=== PATIENT | female | born 1985 | race Caucasian/White ===

== ENCOUNTER 2017-02-25 16:38 | Emergency (ER) | payer MEDICAID | END 2017-02-25 20:40 | disposition home or self-care (01) | LOC: D.ER 16:38 | DX: E86.0 Dehydration (principal); F17.200 Nicotine dependence, unspecified, uncomplicated ==

== ENCOUNTER 2017-05-26 20:19 | Emergency (ER) | payer MEDICAID ==
[2017-05-26 21:07] LABS: APPEARANCE CLEAR (CLEAR); BILIRUBIN NEGATIVE (NEGATIVE); COLOR YELLOW (YELLOW); GLUCOSE NEGATIVE (NEGATIVE); KETONE NEGATIVE (NEGATIVE); NITRITE NEGATIVE (NEGATIVE); PROTEIN NEGATIVE (NEGATIVE); UROBILINOGEN NORMAL (NORMAL)
[2017-05-26 21:22] LABS: BASOPHILS 0.1 % (0-2); EOSINOPHILS 0.8 % (0-7); HEMOGLOBIN 10.8 g/dL (12-16); IMMATURE GRANULOCYTES 0.3 % (0-5); LYMPHOCYTES 29.8 % (15-50); MCH 30.8 pg (26.0-34.0); MCHC 34.8 g/dL (31.0-37.0); MCV 88.3 fL (80.0-100.0); MEAN PLATELET VOLUME 9.2 fL (7.4-10.4); MONOCYTES 4.6 % (2-11); NEUTROPHILS 64.4 % (40-80); PLATELET COUNT 287 10x3/uL (130-400); RBC 3.51 10x6/uL (4.00-5.40); RDW 13.7 % (11.5-14.5); WBC 11.6 10x3/uL (4.8-10.8)
[2017-05-26 21:26] LABS: HCG SERUM POSITIVE (NEGATIVE)
[2017-05-26 21:33] LABS: ALBUMIN 3.2 g/dL (3.4-5.0); ALKALINE PHOSPHATASE 54 U/L (46-116); ALT (SGPT) 13 U/L (10-68); CALC OSMOLALITY 270 mosm/kg (275-300); CALCIUM 9.4 mg/dL (8.5-10.1); CARBON DIOXIDE 23.7 mmol/L (21.0-32.0); CHLORIDE - SERUM 102 mmol/L (98-107); CREATININE - SERUM 0.6 mg/dL (0.6-1.3); GLUCOSE 109 mg/dL (74-106); POTASSIUM - SERUM 3.4 mmol/L (3.5-5.1); PROTEIN - SERUM 7.1 g/dL (6.4-8.2); SODIUM 136 mmol/L (136-145); UREA NITROGEN 7 mg/dL (7-18); eGFR NON AFRICAN AMERICAN > 90 mL/min (90-120)
== END 2017-05-26 22:32 | disposition home or self-care (01) ==
LOC: D.ER 20:19
PROVIDERS: Family Medicine
DX: O26.892 Other specified pregnancy related conditions, second trimester (principal); Z3A.21 21 weeks gestation of pregnancy; V43.52XA Car driver injured in collision with other type car in traffic accident, initial encounter; Y93.89 Activity, other specified; Y92.410 Unspecified street and highway as the place of occurrence of the external cause; F17.200 Nicotine dependence, unspecified, uncomplicated

== ENCOUNTER 2017-06-01 19:28 | Outpatient (CLI) | payer MEDICAID ==
[2017-06-01 20:25] LABS: BASOPHILS 0.1 % (0-2); EOSINOPHILS 0.9 % (0-7); HEMATOCRIT 29.7 % (36.0-48.0); HEMOGLOBIN 10.5 g/dL (12-16); IMMATURE GRANULOCYTES 0.3 % (0-5); LYMPHOCYTES 27.8 % (15-50); MCH 31.3 pg (26.0-34.0); MCHC 35.4 g/dL (31.0-37.0); MCV 88.7 fL (80.0-100.0); MEAN PLATELET VOLUME 9.1 fL (7.4-10.4); MONOCYTES 5.2 % (2-11); NEUTROPHILS 65.7 % (40-80); PLATELET COUNT 301 10x3/uL (130-400); RBC 3.35 10x6/uL (4.00-5.40); WBC 9.7 10x3/uL (4.8-10.8)
[2017-06-01 20:33] LABS: CALC OSMOLALITY 275 mosm/kg (275-300); CALCIUM 8.3 mg/dL (8.5-10.1); CARBON DIOXIDE 22.6 mmol/L (21.0-32.0); CHLORIDE - SERUM 104 mmol/L (98-107); CREATININE - SERUM 0.6 mg/dL (0.6-1.3); GLUCOSE 106 mg/dL (74-106); POTASSIUM - SERUM 3.5 mmol/L (3.5-5.1); SODIUM 139 mmol/L (136-145); UREA NITROGEN 6 mg/dL (7-18); eGFR NON AFRICAN AMERICAN > 90 mL/min (90-120)
[2017-06-01 20:44] LABS: APPEARANCE CLEAR (CLEAR); BILIRUBIN NEGATIVE (NEGATIVE); COLOR YELLOW (YELLOW); GLUCOSE NEGATIVE (NEGATIVE); KETONE NEGATIVE (NEGATIVE); NITRITE NEGATIVE (NEGATIVE); PROTEIN NEGATIVE (NEGATIVE); SPECIFIC GRAVITY 1.015 (1.005-1.020); UROBILINOGEN NORMAL (NORMAL)
== END 2017-06-01 21:43 | disposition home or self-care (01) ==
LOC: D.LDO 19:28
PROVIDERS: Obstetrics & Gynecology
DX: O26.892 Other specified pregnancy related conditions, second trimester (principal); Z3A.21 21 weeks gestation of pregnancy; R42 Dizziness and giddiness

== ENCOUNTER 2017-06-07 15:25 | Emergency (ER) | payer MEDICAID ==
[2017-06-07 16:10] LABS: APPEARANCE CLEAR (CLEAR); BILIRUBIN NEGATIVE (NEGATIVE); COLOR YELLOW (YELLOW); GLUCOSE NEGATIVE (NEGATIVE); KETONE NEGATIVE (NEGATIVE); NITRITE NEGATIVE (NEGATIVE); PROTEIN NEGATIVE (NEGATIVE); SPECIFIC GRAVITY 1.015 (1.005-1.020); UROBILINOGEN NORMAL (NORMAL)
[2017-06-07 16:43] LABS: BASOPHILS 0.1 % (0-2); EOSINOPHILS 0.9 % (0-7); HEMOGLOBIN 10.8 g/dL (12-16); IMMATURE GRANULOCYTES 0.4 % (0-5); LYMPHOCYTES 22.7 % (15-50); MCH 30.9 pg (26.0-34.0); MCHC 34.8 g/dL (31.0-37.0); MCV 88.6 fL (80.0-100.0); MEAN PLATELET VOLUME 9.2 fL (7.4-10.4); MONOCYTES 7.1 % (2-11); NEUTROPHILS 68.8 % (40-80); PLATELET COUNT 308 10x3/uL (130-400); RDW 14.2 % (11.5-14.5); WBC 12.4 10x3/uL (4.8-10.8)
[2017-06-07 17:14] LABS: ALBUMIN 3.2 g/dL (3.4-5.0); ALKALINE PHOSPHATASE 60 U/L (46-116); ALT (SGPT) 14 U/L (10-68); CALC OSMOLALITY 275 mosm/kg (275-300); CALCIUM 9.1 mg/dL (8.5-10.1); CARBON DIOXIDE 22.7 mmol/L (21.0-32.0); CHLORIDE - SERUM 103 mmol/L (98-107); CREATININE - SERUM 0.6 mg/dL (0.6-1.3); GLUCOSE 94 mg/dL (74-106); POTASSIUM - SERUM 3.4 mmol/L (3.5-5.1); PROTEIN - SERUM 7.2 g/dL (6.4-8.2); SODIUM 139 mmol/L (136-145); UREA NITROGEN 7 mg/dL (7-18); eGFR NON AFRICAN AMERICAN > 90 mL/min (90-120)
[2017-06-07 17:23] LABS: BILIRUBIN - TOTAL 0.08 mg/dL (0.2-1.3)
== END 2017-06-07 18:58 | disposition home or self-care (01) ==
LOC: D.ER 15:25
PROVIDERS: Nurse Practitioner Family
DX: O26.892 Other specified pregnancy related conditions, second trimester (principal); Z3A.22 22 weeks gestation of pregnancy; G25.81 Restless legs syndrome; G47.00 Insomnia, unspecified; M79.605 Pain in left leg; M79.604 Pain in right leg

== ENCOUNTER 2017-07-28 21:53 | Emergency (ER) | payer MEDICAID ==
[~2017-07-28] VITALS: Ht 154.9 cm; Wt 70.0 kg
[2017-07-28] MEDS ORDERED: CYCLOBENZAPRINE10 MG PO (22:00)
[2017-07-28] MEDS ORDERED: DESERYL100 MG (22:00)
[2017-07-28] MEDS ORDERED: VISTARIL25 MG (22:00)
[2017-07-28] MEDS ORDERED: PRILOSEC2.5 MG PO (22:00)
[2017-07-28] MEDS ORDERED: TYLENOL #4 W/CO1 TAB (22:01)
[2017-07-28 22:02] VITALS: Ht 154.9 cm; Wt 70.0 kg
[2017-07-28 22:32] LABS: BASOPHILS 0.2 % (0-2); EOSINOPHILS 1.1 % (0-7); HEMOGLOBIN 10.1 g/dL (12-16); IMMATURE GRANULOCYTES 0.4 % (0-5); LYMPHOCYTES 28.8 % (15-50); MCH 31.2 pg (26.0-34.0); MCHC 34.8 g/dL (31.0-37.0); MCV 89.5 fL (80.0-100.0); MEAN PLATELET VOLUME 8.6 fL (7.4-10.4); MONOCYTES 5.5 % (2-11); PLATELET COUNT 291 10x3/uL (130-400); RBC 3.24 10x6/uL (4.00-5.40); WBC 11.4 10x3/uL (4.8-10.8)
[2017-07-28 22:33] LABS: APPEARANCE CLEAR (CLEAR); BILIRUBIN NEGATIVE (NEGATIVE); COLOR YELLOW (YELLOW); GLUCOSE NEGATIVE (NEGATIVE); KETONE NEGATIVE (NEGATIVE); NITRITE NEGATIVE (NEGATIVE); PROTEIN TRACE mg/dL (NEGATIVE); UROBILINOGEN NORMAL (NORMAL)
[2017-07-28 22:34] LABS: BACTERIA MODERATE /hpf (NONE SEEN); EPITHELIAL CELLS 0-5 /hpf (0-5); RED CELLS - URINE 0-5 /hpf (0-5); WHITE CELLS - URINE 0-5 /hpf (0-5)
[2017-07-28 22:43] LABS: ALBUMIN 2.9 g/dL (3.4-5.0); ALKALINE PHOSPHATASE 88 U/L (46-116); ALT (SGPT) 16 U/L (10-68); CALC OSMOLALITY 275 mosm/kg (275-300); CALCIUM 8.8 mg/dL (8.5-10.1); CARBON DIOXIDE 23.8 mmol/L (21.0-32.0); CHLORIDE - SERUM 106 mmol/L (98-107); CREATININE - SERUM 0.6 mg/dL (0.6-1.3); GLUCOSE 120 mg/dL (74-106); POTASSIUM - SERUM 3.2 mmol/L (3.5-5.1); PROTEIN - SERUM 6.7 g/dL (6.4-8.2); SODIUM 139 mmol/L (136-145); UREA NITROGEN 4 mg/dL (7-18); eGFR NON AFRICAN AMERICAN > 90 mL/min (90-120)
[2017-07-29 00:06] VITALS: BP 125/74
== END 2017-07-29 00:08 | disposition home or self-care (01) ==
LOC: D.ER 21:53 → D.EDHOLD 23:02 → D.LD 23:22
PROVIDERS: Family Medicine
DX: O21.9 Vomiting of pregnancy, unspecified (principal); Z3A.29 29 weeks gestation of pregnancy; R55 Syncope and collapse; F17.200 Nicotine dependence, unspecified, uncomplicated

== ENCOUNTER 2017-07-29 00:08 | Outpatient (CLI) | payer MEDICAID ==
[2017-07-28 22:02] VITALS: BMI 29.1
[~2017-07-29 00:08] MED LIST: CYCLOBENZAPRINE10 MG PO; DESERYL100 MG; PRILOSEC2.5 MG PO; TYLENOL #4 W/CO1 TAB; VISTARIL25 MG
== END 2017-07-29 08:45 | disposition home or self-care (01) ==
LOC: D.LDO 00:08 → D.LD 00:09 → D.LDO 08:45
DX: O26.893 Other specified pregnancy related conditions, third trimester (principal); Z3A.29 29 weeks gestation of pregnancy; R55 Syncope and collapse; M54.5 Low back pain; M54.2 Cervicalgia

== ENCOUNTER 2017-10-04 20:15 | Inpatient (IN) | payer MEDICAID ==
[~2017-10-04] VITALS: Ht 154.9 cm; Wt 69.9 kg
--- NOTE | ~2017-10-04 | OP ---
PATIENT NAME: BRANDON BEJARANO MEDICAL RECORD: [id number] LOCATION:[id number] ADMISSION DATE:10/04/17 SURGEON: CHRIS NIXON MD DATE OF OPERATION: 10/05/2017 PREDELIVERY DIAGNOSIS: at term. POSTDELIVERY DIAGNOSIS: Mother delivered at term. PROCEDURE: Induction of labor with vaginal delivery. ATTENDING: Chris Nixon MD ANESTHETIC: Continuous lumbar epidural. FINDINGS: Viable female infant, NOBLE presentation, Apgars 9 and 9, weight is 6 pounds 4 ounces. Placenta spontaneous and intact. No vaginal lacerations. ESTIMATED BLOOD LOSS: 300 cc. DISPOSITION: Mother and infant recovered in room. TRANSINT:[id number] Voice Confirmation ID: [id number] DOCUMENT ID: [id number] CHRIS NIXON MD at 1251 CC: [id number] DICTATION DATE: 10/05/172030 VP REVENUE CYCLE: 10/06/17 0200 ADM IN [place] [id number] [place] [id number]
[2017-10-04] MEDS ORDERED: ULTRAM50 MG PO (21:01)
[2017-10-04] MEDS ORDERED: ZANTAC150 MG PO (21:02)
[2017-10-04] MEDS ORDERED: FERROUS SULFAT325 MG PO (21:03)
[2017-10-04] MEDS ORDERED: PRENATABS RX TA1 TAB PO (21:03)
[2017-10-04 21:05] VITALS: BP 124/87; Ht 154.9 cm; Wt 69.9 kg
[2017-10-04 21:19] LABS: HEMATOCRIT 31.7 % (36.0-48.0); HEMOGLOBIN 11.2 g/dL (12-16); MCH 31.4 pg (26.0-34.0); MCHC 35.3 g/dL (31.0-37.0); MCV 88.8 fL (80.0-100.0); MEAN PLATELET VOLUME 9.8 fL (7.4-10.4); RBC 3.57 10x6/uL (4.00-5.40); RDW 14.2 % (11.5-14.5); WBC 11.9 10x3/uL (4.8-10.8)
[2017-10-04 21:25] LABS: APPEARANCE HAZY (CLEAR); BILIRUBIN NEGATIVE (NEGATIVE); COLOR YELLOW (YELLOW); GLUCOSE NEGATIVE (NEGATIVE); KETONE NEGATIVE (NEGATIVE); NITRITE NEGATIVE (NEGATIVE); PROTEIN NEGATIVE (NEGATIVE); UROBILINOGEN NORMAL (NORMAL)
[2017-10-04 21:33] LABS: UDS - AMPHET NEGATIVE QUAL (NEGATIVE); UDS - BARB NEGATIVE QUAL (NEGATIVE); UDS - BENZO NEGATIVE QUAL (NEGATIVE); UDS - COCAINE NEGATIVE QUAL (NEGATIVE); UDS - OPIATE NEGATIVE QUAL (NEGATIVE); UDS - PCP NEGATIVE QUAL (NEGATIVE); UDS - THC NEGATIVE QUAL (NEGATIVE)
[2017-10-05 22:26] VITALS: BP 124/73
[2017-10-05 22:41] VITALS: BP 133/84
[2017-10-06 07:36] LABS: RAPID PLASMA REAGIN Non Reactive (Non Reactive)
[2017-10-06 07:37] VITALS: BP 118/72
[2017-10-06 14:15] VITALS: BP 125/82
[2017-10-06 16:59] VITALS: BP 120/76
[2017-10-07 07:15] VITALS: BP 104/70
[2017-10-07] MEDS ORDERED: TYLENOL #4 W/CO1 TAB (09:38)
== END 2017-10-07 11:30 | disposition home or self-care (01) | DRG 775 ==
LOC: D.WS 20:15 → D.LD 20:15 → D.WS 10-05 23:35 → D.LD 10-10 12:39
PROVIDERS: Obstetrics & Gynecology
PROC: 10E0XZZ Delivery of Products of Conception, External Approach (ICD-10-PCS; principal; 2017-10-05)
PROC: 10907ZC Drainage of Amniotic Fluid, Therapeutic from Products of Conception, Via Natural or Artificial Opening (ICD-10-PCS; 2017-10-05)
PROC: 3E033VJ Introduction of Other Hormone into Peripheral Vein, Percutaneous Approach (ICD-10-PCS; 2017-10-05)
PROC: 3E0P7VZ Introduction of Hormone into Female Reproductive, Via Natural or Artificial Opening (ICD-10-PCS; 2017-10-05)
DX: O99.344 Other mental disorders complicating childbirth (principal); F41.9 Anxiety disorder, unspecified; Z3A.39 39 weeks gestation of pregnancy; Z37.0 Single live birth

== ENCOUNTER 2017-11-17 19:14 | Emergency (ER) | payer MEDICAID ==
[~2017-11-17] VITALS: Ht 154.9 cm; Wt 60.5 kg
[~2017-11-17 19:14] MED LIST changes: +FERROUS SULFAT325 MG PO; +PRENATABS RX TA1 TAB PO; +ULTRAM50 MG PO; +ZANTAC150 MG PO
[2017-11-17] MEDS ORDERED: EFFEXOR75 MG PO (19:28)
[2017-11-17 19:29] VITALS: Ht 154.9 cm; Wt 60.5 kg
[2017-11-17] MEDS ORDERED: KLONOPIN1 MG PO (19:29)
[2017-11-17] MEDS ORDERED: VISTARIL25 MG PO (20:00)
[2017-11-17 20:29] VITALS: BP 121/87
== END 2017-11-17 20:29 | disposition home or self-care (01) ==
LOC: D.ER 19:14
DX: F53 Mental and behavioral disorders associated with the puerperium, not elsewhere classified (principal); F41.0 Panic disorder [episodic paroxysmal anxiety]